=== PATIENT | female | born 2000 | race Caucasian/White ===

== ENCOUNTER 2021-12-14 12:31 | Outpatient (CLI) | payer BC, SELFPAY ==
--- NOTE | 2021-12-15 12:00 | CRLHL7_ITS ---
For Patients: As a result of the Century Cures Act, medical imaging exams and procedure reports are released immediately into your electronic medical record. You may view this report before your referring provider. If you have questions, please contact your health care provider. HISTORY: 21-year-old female. Thyrotoxicosis. TECHNIQUE: 228 microcuries of I 123 was administered orally on 12/14/2021. 24 hour uptake and imaging was performed. FINDINGS: The 24 hour uptake is low at 1.03 percent. Images of the thyroid gland are nondiagnostic due to the low uptake. IMPRESSION: 1. The 24 hour uptake is low at 1.03 percent and the images are nondiagnostic due to the low uptake. 2. These findings in the clinical setting of thyrotoxicosis are typical for subacute thyroiditis. 3. Please correlate these findings clinically however as they can also be also be seen in other less common conditions including ectopic thyrotoxicosis and iodine induced hyperthyroidism. Dictated by Ranulfo Ortega MD @ 12/15/2021 2:19:18 PM (Electronically Signed)
== END 2021-12-14 12:32 | disposition home or self-care (01) ==
DX: E05.90 Thyrotoxicosis, unspecified without thyrotoxic crisis or storm (principal)
CPT/HCPCS: 78014; A9509